=== PATIENT | male | born 1985 | race Caucasian/White ===

== ENCOUNTER 2019-08-28 18:36 | Emergency (ER) | payer OTHER ==
[~2019-08-28] VITALS: Ht 180.3 cm; Wt 106.8 kg
[2019-08-28 19:46] VITALS: BP 144/103
== END 2019-08-28 19:48 | disposition home or self-care (01) ==
LOC: ER 18:36
DX: S52.124A Nondisplaced fracture of head of right radius, initial encounter for closed fracture (principal); M25.521 Pain in right elbow; W01.0XXA Fall on same level from slipping, tripping and stumbling without subsequent striking against object, initial encounter; Y93.01 Activity, walking, marching and hiking; Y92.89 Other specified places as the place of occurrence of the external cause; Y99.8 Other external cause status
CPT/HCPCS: 73090; 73110; 99284

== ENCOUNTER 2019-09-12 11:26 | Outpatient (CLI) | payer BC | END 2019-09-12 23:59 | disposition home or self-care (01) | LOC: RAD 11:26 | PROVIDERS: ATTEND Orthopaedic Surgery | DX: S52.121A Displaced fracture of head of right radius, initial encounter for closed fracture (principal); X58.XXXA Exposure to other specified factors, initial encounter; Y93.89 Activity, other specified; Y92.89 Other specified places as the place of occurrence of the external cause; Y99.8 Other external cause status | CPT/HCPCS: 73080 ==

== ENCOUNTER 2019-10-09 10:46 | Outpatient (CLI) | payer BC | END 2019-10-09 23:59 | disposition home or self-care (01) | LOC: RAD 10:46 | PROVIDERS: ATTEND Orthopaedic Surgery | DX: S52.124D Nondisplaced fracture of head of right radius, subsequent encounter for closed fracture with routine healing (principal); X58.XXXD Exposure to other specified factors, subsequent encounter | CPT/HCPCS: 73080 ==